=== PATIENT | male | born 1975 | race Caucasian/White ===

== ENCOUNTER 2017-08-20 16:12 | Inpatient (IN) | payer BC, OTHER ==
[~2017-08-20] VITALS: Ht 182.9 cm; Wt 117.9 kg
--- NOTE | 2017-08-20 20:05 | NUR ---
INTAKE Patient first assessment done in intake office. Patient stated that he is here for detox. Patient reports NKA, reported using "Alcohol/"Vodka PO" every day since "1995". Last used "vodka 480 ml on 08/20/2017 @1400". Patient noted disheveled, unkempt, and uncombed. Patient noted with moderate intoxication. CIWA=12. Patient presented with anxiety, agitation, nervousness, tremors, and sweating. VS: BP: 144/93, HR:112, T:98.3, RR:19, RA SpO2: 95%, Pain: "0/10". Explained rules and regulations of the unit. Patient verbalized understanding. Further assessment will be done on the unit.
--- NOTE | 2017-08-20 20:17 | NUR ---
ADMISSION NOTE: New patient is a 41 year old male admitted to [facility] on 08/20/2017 @2017 for Alcohol/"Vodka" withdrawal. Patient is ambulatory with steady gait. Height: 72 inches; Weigh by standing scale: 260 lbs. Patient is alert and oriented x4. Patient reports NKA, is on Regular Diet, Full Code, is on Fall and Seizures Precautions . Patient denies Seizures history. PMH: Anxiety, Depression, Asthma ("childhood hx"). UDS test provided. VS: BP: 144/93, HR:112, T:98.3, RR:19, RA SpO2: 95%, Pain level: "0/10". Patient denies SI/HI now. Respirations even and unlabored. Lung Sounds are clear throughout. Patient denies SOB, cough, and chest pain. Bowel sounds active in all four quadrants. Skin is intact, warm and dry to touch. Patient reports " first time on detox". Patient did not bring home medications. Patient reports "No PCP". Patient noted disheveled, unkempt, and uncombed. Patient noted with moderate intoxication. CIWA=12. Patient presented with anxiety, agitation, nervousness, tremors, and sweating. Substance Use History: 1. "Alcohol/Vodka since 1995 every day 750 ml. Last used "vodka 480 ml on 08/20/2017 @1400". Patient reports " not smoking 10 years". Doctor Franklyn Reid MD assessed patient. Orders placed. Encouraged patient to verbalize feelings. All needs met. Call light within reach. Bed locked and in lowest position. Padded side rails up x2. Will continue to monitor.
[2017-08-20 21:02] LABS: *AMPHETAMINE, URINE NEGATIVE (NEGATIVE); *BARBITURATE, URINE NEGATIVE (NEGATIVE); *CANNABINOID, URINE NEGATIVE (NEGATIVE); *COCCAINE, URINE NEGATIVE (NEGATIVE); *OPIATE, URINE NEGATIVE (NEGATIVE); *PHENCYCLIDINE SCREEN,URINE NEGATIVE (NEGATIVE)
[2017-08-20 21:48] VITALS: BP 144/93
[2017-08-20] MEDS ORDERED: ONDANSETRON ODT 4 MG TAB.RAPDIS SL PRN (22:00)
[2017-08-20] MEDS ORDERED: MAGNESIUM HYDROXIDE 30 ML LIQUID UDC PO PRN (22:00)
[2017-08-20] MEDS ORDERED: MIRALAX 17 GM POWD.PACK PO PRN (22:00)
[2017-08-20] MEDS ORDERED: ALBUTEROL SULFATE 2.5 MG/ 0.5 ML NEBU NEB PRN (22:00)
[2017-08-20] MEDS ORDERED: ONDANSETRON 4 MG/2 ML VIAL IM PRN (22:00)
[2017-08-20] MEDS ORDERED: LORAZEPAM 1 MG TABLET PO PRN ×2 (22:00)
[2017-08-20] MEDS ORDERED: DICYCLOMINE HCL 20 MG TABLET PO PRN (22:00)
[2017-08-20] MEDS ORDERED: LORAZEPAM 2 MG/1 ML VIAL IM PRN (22:00)
[2017-08-20] MEDS ORDERED: MAG HYDROX/AL HYDROX/SIMETH 30 ML LIQUID UDC PO PRN (22:00)
[2017-08-20] MEDS ORDERED: ACETAMINOPHEN 325 MG TABLET PO PRN (22:00)
[2017-08-20] MEDS ORDERED: IBUPROFEN 400 MG TABLET PO PRN (22:00)
[2017-08-20] MEDS ORDERED: LOPERAMIDE HCL 2 MG CAPSULE PO PRN ×2 (22:00)
[2017-08-20] MEDS ORDERED: THIAMINE HCL 200 MG/2 ML VIAL IM ONE (22:00)
[2017-08-20 22:08] LABS: BASOPHILS # (AUTO) 0.1 K/uL (0.0-8.0); EOSINOPHILS % (AUTO) 0.2 % (0.0-7.0); HEMATOCRIT 50.3 % (36.7-47.1); HEMOGLOBIN 17.1 g/dL (12.5-16.3); LYMPHOCYTES # (AUTO) 5.2 K/uL (20.0-40.0); LYMPHOCYTES % (AUTO) 43.9 % (20.5-51.5); MEAN CORPUSCULAR HEMOGLOBIN 31.6 uug (23.8-33.4); MEAN CORPUSCULAR HGB CONC 34 g/dL (32.5-36.3); MEAN CORPUSCULAR VOLUME 92.7 fL (73.0-96.2); MONOCYTES # (AUTO) 0.9 K/uL (2.0-10.0); MONOCYTES % (AUTO) 7.6 % (0.0-11.0); NEUTROPHILS # (AUTO) 5.6 K/uL (1.8-8.9); NEUTROPHILS % (AUTO) 47.3 % (38.5-71.5); PLATELET COUNT (AUTO) 257 K/uL (152-348); RED BLOOD CELL COUNT(AUTO) 5.42 MIL/uL (4.06-5.63); WHITE BLOOD COUNT (AUTO) 11.8 K/uL (3.6-10.2)
[2017-08-20 22:13] LABS: BILIRUBIN,TOTAL 0.9 mg/dL (0.2-1.0); CREATININE 1.1 mg/dL (0.6-1.3); POTASSIUM 4.1 mmol/L (3.5-5.1); TOTAL PROTEIN, SERUM 9.3 g/dL (6.4-8.2)
[2017-08-20] MEDS ORDERED: LORAZEPAM 1 MG TABLET PO SCH (22:30)
[2017-08-21] VITALS: BP 123/76
[2017-08-21 04:00] VITALS: BP 145/92
--- NOTE | 2017-08-21 04:25 | NUR ---
PRN ATIVAN 2 MG PO ADMINISTRATION PRN ATIVAN 2 MG PO ADMINISTRATED FOR CIWA=15 ORDERED. PATIENT TOLERATED WELL. ALL NEEDS MET. SAFETY MEASURES IN PLACE;CALL LIGHT WITHIN REACH, BED IS LOCKED IN LOWEST POSITION, PADDED BED RAILS UP X2. WILL CONTINUE TO MONITOR CLOSELY.
--- NOTE | 2017-08-21 05:25 | NUR ---
RE-ASSESSMENT Patient is sleeping. Respirations even and unlabored. RR=14. PRN Ativan 2 mg PO administrated for CIWA= 15 @0425 was effective. All needs met. Safety measures on place. Call light within reach, bed in lowest position locked, padded rails up bilaterally. Will continue to monitor closely.
--- NOTE | 2017-08-21 07:09 | NUR ---
END OF SHIFT NOTE 41 year old male presented for ETOH(Vodka) withdrawal, continues 5 Day Ativan Taper, which tolerated well. Patient is alert and oriented x4. Patient reports NKA, is on Regular Diet, Full Code, is on Fall and Seizures Precautions. Patient denies Seizures history. Patient noted disheveled with uncombed hair and with poor eye contact. Patient educated in safety and hygiene care. Encouraged to independently perform hygiene care. CIWA=12 @2000, CIWA=10 @0000, and last CIWA=9 @0526. Patient presented with anxiety, agitation, nervousness, tremors, sweating, fatigue, and restlessness. Patient denies SI/HI at this time. Patient encouraged to increase oral fluid intake as tolerated. Ativan 2 mg PO given for CIWA=15 @0425 as ordered, and was effective. Patient 8 hours, intake 1,105 ml, voided x1. Safe and calm environment with minimized noises was provided. Patient slept 6 hours, intake 1,796 ml, voided x2. All needs met. Safety measures in the place: Call light within reach, bed in the lowest position locked, padded rails up x2. Patient endorsed to day shift nurse.
--- NOTE | 2017-08-21 07:15 | NUR ---
Start of Shift Lip Reading Teacher received report on 41 year old male admitted to [facility] on 08/20/17 for medically supervised withdrawal from ETOH. Endorses NKA, full code and regular diet. PMH of Childhood Asthma, anxiety and depression. Pt has been started on an Ativan taper. Pt received an Ativan for CIWA of 15 at 0425. Last recorded of CIWA, per NOC report. Lip Reading Teacher encounters pt in his room resting on his bed. A/O x4, calm, cooperative and able to make needs known. Flat affect and depressed mood. Clear of thought and speech. Endorses being in his first detoxification program. Lip Reading Teacher educated pt on detoxification process and medication available to treat symptoms associated with. [place] [address] was effective in eliminating tremors. Bed in low position, with wheels locked and side rails up x2. Will continue to monitor, support and encourage according to plan of care.
[2017-08-21 08:30] VITALS: BP 140/85
[2017-08-21] MEDS ORDERED: TUBERCULIN,PURIF.PROT.DERIV. 5 TU/0.1 ML TEST ID ONE (09:00)
[2017-08-21] MEDS: THIAMINE HCL 100 MG TABLET PO SCH (09:22)
[2017-08-21] MEDS: FOLIC ACID 1 MG TABLET PO SCH (09:22)
[2017-08-21] MEDS: LORAZEPAM 1 MG TABLET PO SCH ×3 (09:22→20:27)
[2017-08-21] MEDS: MULTIVITAMINS,THERAPEUTIC TABLET PO SCH (09:22)
[2017-08-21 12:23] VITALS: BP 137/89
[2017-08-21 16:47] VITALS: BP 142/94
--- NOTE | 2017-08-21 18:45 | NUR ---
START OF SHIFT NOTE Endorsed patient is a 41 year old male admitted for Alcohol(Vodka) withdrawal, continues 5 Day Ativan Taper. He is tolerated well. Patient is alert and oriented x4. Patient reports NKA, is on Regular Diet, Full Code, is on Fall and Seizures Precautions. Patient denies Seizures history. Patient appears unshaved, unkempt, with uncombed hair. Patient educated in safety and hygiene care. Encouraged to independently perform hygiene care. The most recent CIWA=9 @1649 per day shift nurse report. Patient presented with anxiety, agitation, nervousness, tremors, sweating, body aches, fatigue, and restlessness. Patient encouraged to express his feelings. Encouraged to fluids intake as tolerated. Encouraged to attend group activities. All needs met. Safety measures in place: Call light within reach, bed is locked and in lowest position, padded bed rails up x2. Patient endorsed by day shift nurse. Will continue to monitor closely.
--- NOTE | 2017-08-21 18:45 | NUR ---
End of Shift Sales Team Leader provided report on 41 year old male admitted to [facility] on 08/20/17 for medically supervised withdrawal from ETOH. Endorses NKA, full code and regular diet. PMH of Childhood Asthma, anxiety and depression. Pt has been started on an Ativan taper, pt tolerating well with last CIWA 9, recorded at 1600. Pt is A/O x4, calm, cooperative and able to make needs known. Flat affect and depressed mood. Clear of thought and speech. Pt has been isolative to his room and withdrawn and guarded. Bed in low position, with wheels locked and side rails up x2. Will continue to monitor, support and encourage according to plan of care.
[2017-08-21 20:00] VITALS: BP 131/92
[2017-08-21] MEDS: diphenhydrAMINE 50 MG CAPSULE PO PRN (20:27)
--- NOTE | 2017-08-21 20:27 | NUR ---
PRN BENADRYL 50 MG 1 CAP PO ADMINISTRATION Patient c/o insomnia. PRN Benadryl 50 mg 1 cap PO administrated with full glass of water as ordered. Patient tolerated well. All needs met. Safety measures on place. Call light within reach, bed in lowest position locked, padded rails up bilaterally. Will continue to monitor closely
--- NOTE | 2017-08-21 21:27 | NUR ---
RE-ASSESSMENT Patient is sleeping. RR 14. Respirations even and unlabored. PRN Benadryl 50 mg 1 cap PO administrated for insomnia @2026 as ordered was effective. All needs met. Safety measures on place. Call light within reach, bed in lowest position locked, padded rails up x2. Will continue to monitor closely.
[2017-08-22] VITALS (7 sets, daily range): BP systolic 114–151; BP diastolic 76–102
--- NOTE | 2017-08-22 06:54 | NUR ---
END OF SHIFT NOTE Endorsed 41 year old male continues 5 Day Ativan Taper for ETOH(Vodka) withdrawal. Patient remains compliant with treatment, medications and diet regime. Withdrawal symptoms was closely monitored. Patient is alert and oriented x4. Patient reports NKA, is on Regular Diet, Full Code, is on Fall and Seizures Precautions. Patient denies Seizures history. Patient appears sad, worry, unshaven , unkempt, and uncombed. Patient educated in safety and hygiene care. Encouraged to independently perform hygiene care. CIWA=13 @2000, CIWA=9 @0000, CIWA=10 @0400. During operation shift supervisor patient c/o anxiety, agitation, nervousness, generalized body aches, sweating, tremors, fatigue, and restlessness. Encouraged to increase oral fluid intake as tolerated. Encouraged to attend group activities. PRN Benadryl 50 mg 1 tab PO administrated for insomnia @2026 was effective. Safe and calm environment with minimized noises was provided. Patient slept 6 hours, intake 1,000ml, voided x2., stool x1. All needs met. Safety measures in the place by hospital policy: Call light within reach, bed in the lowest position and locked, padded rails up x2. Patient endorsed to day shift nurse.
--- NOTE | 2017-08-22 07:45 | NUR ---
START OF SHIFT Received report from nightman nurse. Pt is lying in bed resting and easily arousable. He is a 41 yo [address] to [facility] [facility] on 08/20 for ETOH dependence. He continues on a 5 day Ativan taper for management of withdrawal symptoms. Pt required medication for sleep. His room is odorous upon entering. He has a flat affect, depressed mood, with facial flushing and tremors. B/P elevated while lying in bed. Safety measures in place.
[2017-08-22 08:07] LABS: HEPATITIS B SURFACE AG Negative (Negative)
[2017-08-22] MEDS: FOLIC ACID 1 MG TABLET PO SCH (08:23)
[2017-08-22] MEDS: THIAMINE HCL 100 MG TABLET PO SCH (08:23)
[2017-08-22] MEDS: MULTIVITAMINS,THERAPEUTIC TABLET PO SCH (08:23)
[2017-08-22] MEDS: CLONIDINE HCL 0.1 MG TABLET PO PRN (08:24)
--- NOTE | 2017-08-22 08:25 | NUR ---
PRN Clonidine Pt's B/P 151/101 and HR 103. CIWA score 9. He has tremors and moist skin. PRN Clonidine administered.
[2017-08-22] MEDS ORDERED: LORAZEPAM 1 MG TABLET PO SCH ×2 (09:00→21:00)
--- NOTE | 2017-08-22 09:30 | NUR ---
PRN Clonidine reassessment PRN Clonidine somewhat effective. B/P 133/89 and HR 108. Pt reports feeling more relaxed. Dr. Reid aware. No new orders.
[2017-08-22] MEDS ORDERED: TUBERCULIN,PURIF.PROT.DERIV. 5 TU/0.1 ML TEST ID ONE (13:00)
[2017-08-22] MEDS: LORAZEPAM 1 MG TABLET PO SCH ×2 (13:24→17:14)
--- NOTE | 2017-08-22 18:58 | NUR ---
START OF SHIFT Report provided to warehouse shift supervisor nurse. Pt is attending a group meeting. He is a 41 yo male admitted to [facility] on 08/20 for ETOH dependence. He continues on a 5 day Ativan taper for management of withdrawal symptoms. Pt had elevated B/P and HR with no h/o HTN. He was anxious and distracted by thoughts of his job. He is preoccupied with his discharge date. Encouraged pt to focus on his treatment. He has a blunted affect and expressed feelings of guilt. Provided support. Ativan increased to 2mg tonight at bedtime by Dr. Reid. PRN Clonidine administered. Pt compliant with group meetings. Last CIWA was 7. Safety measures in place. Addendum: 08/22/17 at 1902 by ADEEL VARMA RN Correction: END OF SHIFT NOTE
--- NOTE | 2017-08-22 18:58 | NUR ---
START OF SHIFT NOTE 41 year old male presented for Alcohol(Vodka) withdrawal, continues 5 Day Ativan Taper which tolerated well. He is reports NKA, is on Regular Diet, Full Code, is on Fall and Seizures Precautions. Patient denies Seizures history. Patient appears with flat effects, worry, disheveled, unshaved, unkempt, with uncombed hair. Patient educated in safety and hygiene care. Encouraged to independently perform hygiene care. The most recent CIWA=7 @78831 per day shift nurse report. Patient presented with anxiety, agitation, nervousness, tremors, sweating, body aches, fatigue, and restlessness. Patient encouraged to express his feelings. PRN Clonidine was administrated for High Blood Pressure and was effective per day shift nurse report. Encouraged to fluids intake as tolerated. Encouraged to attend group activities. All needs met. Safety measures in place: Call light within reach, bed is locked and in lowest position, padded bed rails up x2. Patient endorsed by day shift nurse. Will continue to monitor closely.
[2017-08-22] MEDS: GABAPENTIN 300 MG CAPSULE PO SCH (21:00)
[2017-08-22] MEDS: CLONIDINE HCL 0.1 MG TABLET PO SCH (21:00)
[2017-08-23] VITALS: BP 106/66
[2017-08-23 04:00] VITALS: BP 113/74
--- NOTE | 2017-08-23 06:42 | NUR ---
END OF SHIFT NOTE: 41 year male continues 5 Day Ativan Taper for Alcohol/Vodka withdrawal which tolerated well. Patient remains compliant with treatment, medications, and diet regime. Withdrawal symptoms closely monitored. Patient is alert and oriented x4. Patient noted anxious, worry about his "job", disheveled, unshaven, and uncombed. Emotional support provided. Educated in safety and hygiene care, encouraged to independently perform hygiene care. CIWA=11 @2000; CIWA=8 @0000. The most recent CIWA=9 @0400. Patient presented with anxiety, agitation, nervousness, tremors, restlessness, and sweating. CIWA taken while patient was alert. No PRN Medications administrated last shift manager. Encouraged to fluids intake as tolerated. Encouraged to attend group activities. Safe and calm environment with minimized noises was provided. Patient slept 7 hours, intake 2,000 ml, voided x4. All needs met. Safety measures in the place by hospital policy: Call light within reach, bed in the lowest position locked, padded rails up x2. Patient endorsed to day shift nurse.
--- NOTE | 2017-08-23 07:45 | NUR ---
START OF SHIFT Endorse rcvd from ongoing nurse, client is in bed, in a position, he is a/o to name, place and situation, he presents with anxious mood, flat affect, tremors, skin moist, dark circles around eyes, dry lips. Client reports cold/chills, nausea, decreased appetite, restless legs, feeling of panic, and fatigue. Encourage client to increase PO fluid intake to facilitate detox and dehydration. Encourage client to participate in ADL's. Encourage client to attend group therapy to learn skills to maintain sober. Last CIWA 9 @ 0400. Client had an uneventful night, he slept 7 hrs. Seizure precautions rendered. Call light within reach.
[2017-08-23 08:05] VITALS: BP 128/86
[2017-08-23] MEDS: MULTIVITAMINS,THERAPEUTIC TABLET PO SCH (08:32)
[2017-08-23] MEDS: THIAMINE HCL 100 MG TABLET PO SCH (08:32)
[2017-08-23] MEDS: FOLIC ACID 1 MG TABLET PO SCH (08:33)
[2017-08-23] MEDS: GABAPENTIN 300 MG CAPSULE PO SCH ×3 (08:33→20:48)
[2017-08-23] MEDS: CLONIDINE HCL 0.1 MG TABLET PO SCH ×2 (08:33→20:47)
[2017-08-23] MEDS ORDERED: LORAZEPAM 1 MG TABLET PO SCH ×3 (09:00→21:00)
--- NOTE | 2017-08-23 10:00 | NUR ---
Nursing notes Client refuses padding on side rails x 2 as seizure precautions, risk/benefits discuss with client, but he still refused.
[2017-08-23 12:00] VITALS: BP 114/66
[2017-08-23 16:40] VITALS: BP 133/82
--- NOTE | 2017-08-23 16:50 | NUR ---
Client with increased P 119, he denies chest pain. He stated, "We just had a very personal group therapy, I feel anxious, but I don't want to take ant extra medications." Will continue to monitor. call light within reach.
--- NOTE | 2017-08-23 19:14 | NUR ---
END OF SHIFT Endorse client to incoming nurse, client is in bed, a/o x4, he continue to present with anxious mood, flat affect, tremors, skin moist, cold/chills, nausea, decreased appetite, restless legs, feeling of panic, and fatigue. Adequate Po fluid intake 2200mL, void x 3, stool x 1. Client consumes ~50% of meals. Client is compliant with 1/3 of group therapy. Client continue to decline side rails padding as seizure precautions. Last CIWA 13 @ 1600. Side rails x 2 up. Call light within reach.
--- NOTE | 2017-08-23 20:05 | NUR ---
Start of Shift: A/o x4 C/o anxiety CIWA 4 day 3 of 5 Day Atnaveed ingram. Continue to observe for Falls, sz activity and safety checks. Encourage po fluids,attend groups and verbalize feelings. 1-1 anxiety. Siderails up Call light within reach.
[2017-08-23 21:00] VITALS: BP 107/68
[2017-08-23] MEDS: diphenhydrAMINE 50 MG CAPSULE PO PRN (22:04)
--- NOTE | 2017-08-23 23:00 | NUR ---
C/O insomonia Given Benadryl 50 mg po
[2017-08-24] VITALS (7 sets, daily range): BP systolic 107–146; BP diastolic 68–89
--- NOTE | 2017-08-24 00:10 | NUR ---
Deferred CIWA and v/s
--- NOTE | 2017-08-24 04:05 | NUR ---
Deffered CIWA and v/s
--- NOTE | 2017-08-24 06:15 | NUR ---
End of shift Report: Lying bed eyes closed resp even and unlab appear resting comforably slept 7 hours CIWA 5 on ativan tamper siderails up Call light within reach.
--- NOTE | 2017-08-24 07:46 | NUR ---
START OF SHIFT Client is in room, he is a/o to name, place and situation, he has difficulty concentrating, he presents with anxious mood, flat affect, restless, he continues to open and close his fist, clammy skin, flushed face. Client is unshaven with strong body odor, encourage client to take a shower after he take his morning medications, he said, "I'll try, I just don't feel good at all." Client reports cold/chills, tremors, sweating, stomach cramps, nausea, loose stool x 2, restless legs, and fatigue. Encourage client to increase PO fluid for rehydration and to facilitate detox. Encourage client to attend group therapy to learn skills to maintain sober. Last CIWA 5 @ 1999. PRN Benadryl 50mg PO administered for inability to sleep, he slept 7 hrs. Side rails up x 2, client refused the padding on side rails, stating, "No, I have never had a seizure before, I don't think I'll have one today either." Educate client on the risk for alcohol withdrawal-induced seizure and the benefits of padding the side rails as a seizure precautions, but client still refused the padding of side rails. Call light within reach.
[2017-08-24] MEDS: CLONIDINE HCL 0.1 MG TABLET PO SCH ×2 (09:21→21:00)
[2017-08-24] MEDS: LORAZEPAM 1 MG TABLET PO SCH ×2 (09:21→21:00)
[2017-08-24] MEDS: FOLIC ACID 1 MG TABLET PO SCH (09:21)
[2017-08-24] MEDS: GABAPENTIN 300 MG CAPSULE PO SCH ×3 (09:21→20:55)
[2017-08-24] MEDS: THIAMINE HCL 100 MG TABLET PO SCH (09:21)
[2017-08-24] MEDS: MULTIVITAMINS,THERAPEUTIC TABLET PO SCH (09:21)
[2017-08-24] MEDS: CLONIDINE HCL 0.1 MG TABLET PO PRN (12:46)
--- NOTE | 2017-08-24 12:46 | NUR ---
PRN Clonidine 0.1mg PO administered for increased BP 146/88. Will continue to monitor. Call light within reach.
--- NOTE | 2017-08-24 13:46 | NUR ---
Reassess PRN Clonidine 0.1mg BP 125/79. Call light within reach.
[2017-08-24] MEDS ORDERED: DIPH50CA37 PO (17:33)
[2017-08-24] MEDS ORDERED: GABA-534 PO (17:33)
[2017-08-24] MEDS ORDERED: HYDR-3026 PO (17:33)
[2017-08-24] MEDS ORDERED: CLON0.1T14 PO (17:33)
--- NOTE | 2017-08-24 19:25 | NUR ---
END OF SHIFT Endorse client to incoming nurse, client is a/o x4, he continues to present with anxious mood, flat affect, restless, flushed face, cold/chills, tremors, sweating, stomach cramps, nausea, restless legs, and fatigue. Adequate Po fluid intake 2215mL, void x 5. Client consumes ~75% of meals. Client is compliant with 1/3 of group therapy. Last CIWA 514 @ 1600. PRN Clonidine 0.1mg Po administered for BP 146/88, noted effective. Side rails x 2 up, not padded, client refused them. Call light within reach.
--- NOTE | 2017-08-24 20:45 | NUR ---
Start of Shift: A/O x4 skin w/d c/o anxiety,tremors and agitation CIWA 4. On Ativan tamper.Encourage to attend groups and fluids. Continue to observe for safety, Falls & sz activity. Siderails up Call light within reach. Denies of any other distress
[2017-08-24] MEDS: diphenhydrAMINE 50 MG CAPSULE PO PRN (20:54)
--- NOTE | 2017-08-24 21:45 | NUR ---
PRN: C/o insomonia given 50mg Benadryl effective.
[2017-08-25] VITALS (7 sets, daily range): BP systolic 132–166; BP diastolic 82–95
--- NOTE | 2017-08-25 | NUR ---
Deferred CIWA and V/S
--- NOTE | 2017-08-25 04:15 | NUR ---
Deferred CIWA and V/S
--- NOTE | 2017-08-25 06:17 | NUR ---
End of Shift: Lying in bed eyes closed resp even and unlab appears resting comfortably. Slept 5.3/4 hours. Siderails up,Call light within reach. Continue to observe for safety and give am shift report. Last CIWA 4
--- NOTE | 2017-08-25 07:34 | NUR ---
START OF SHIFT Client is in room, scattered clothes on the floor, bedside table with open bottle water and soft drinks, several open bags of chips on the floor. Client is a/o x 4, he presents with anxious mood, flat affect, flushed face, tremors felt, not observed, and clammy skin. Client reports a headache, stomach cramps, restless legs, and fatigue. Encourage client to increase PO fluid intake as tolerated to facilitate detox. Encourage client to attend group therapy to learn skills to maintain sober. Client is on last of 5 day Ativan taper, last CIWA 4 @ 1999. Client slept 6 hrs. Side rails x 2 up, not padded, client refuses them, stating, "Yeah, yeah, I know they will protect my face in the event of a seizure, but I don't want them, OK." Call light within reach.
[2017-08-25] MEDS: FOLIC ACID 1 MG TABLET PO SCH (08:54)
[2017-08-25] MEDS: MULTIVITAMINS,THERAPEUTIC TABLET PO SCH (08:54)
[2017-08-25] MEDS: GABAPENTIN 300 MG CAPSULE PO SCH ×3 (08:54→22:01)
[2017-08-25] MEDS: THIAMINE HCL 100 MG TABLET PO SCH (08:54)
[2017-08-25] MEDS: CLONIDINE HCL 0.1 MG TABLET PO SCH ×2 (08:55→22:01)
[2017-08-25] MEDS ORDERED: LORAZEPAM 1 MG TABLET PO SCH (09:00)
--- NOTE | 2017-08-25 11:45 | NUR ---
Endorsed client to RN Client continues to present with anxious mood, flat affect. Last CIWA 11 @ 0800. Client consumes ~50% of meals. Client is not compliant with group therapy. Seizure precautions rendered. call light within reach.
--- NOTE | 2017-08-25 11:46 | NUR ---
RECEIVED CARE Patient received from primary nurse all pertinent information discussed.Will cont to monitor.
--- NOTE | 2017-08-25 19:00 | NUR ---
Start of Shift Patient Received. Patient is in the activities room participating in a group meeting. Per endorsement, patient is a 41 year old male admitted for ETOH Withdrawal and completed a 5 day Ativan taper. Patient is set of for discharge tomorrow 08/26/17. No PRN Medications administered. Last noted CIWA 6. All needs attended to promptly. Will continue plan of care as ordered.
--- NOTE | 2017-08-25 19:01 | NUR ---
END OF SHIFT NOTE Patient is alert awake oriented x4. Patient admitted for ETOH withdrawal. Patient presented with anxiety, agitation. Patient completed his Ativan taper tolerated well. Patient set for discharge in the morning. During shift pt did not receive any PRN'S. Encourage pt to develop coping skills and utilization of non pharmacological intervention. Patient was encouraged to participates in groups therapy session. Encourage diversional activities to alleviate anxiety. Patient denies any SI/HI. Safety measures in place. Patient endorsed to night nurse in stable condition.
[2017-08-25] MEDS: diphenhydrAMINE 50 MG CAPSULE PO PRN (22:01)
--- NOTE | 2017-08-25 22:02 | NUR ---
PRN Medication Administration Patient is noted verbalizing inability of falling asleep. PRN Benadryl administered as per order. Will continue to monitor.
--- NOTE | 2017-08-25 23:00 | NUR ---
PRN Medication Reassessment patient is noted awake and verbalizing inability of falling asleep. Patient states "Im really nervous about leaving tomorrow because my is picking me up. Im going to try and fall asleep but Ill let you know if I cant sleep." PRN Benadryl noted not effective. Will continue to monitor.
[2017-08-25] MEDS: HYDROXYZINE PAMOATE 25 MG CAPSULE PO PRN (23:59)
[2017-08-25] MEDS: CLONIDINE HCL 0.1 MG TABLET PO PRN (23:59)
--- NOTE | 2017-08-26 | NUR ---
PRN Medication Administration patient is noted with elevated blood pressure of 166/95 and pulse of 94 and continues with inability of falling asleep. MD made aware with new order of Vistaril 50mg for increased anxiety. PRN Clonidine and Vistaril administered. Will continue to monitor.
[2017-08-26 00:50] VITALS: BP 131/83
--- NOTE | 2017-08-26 00:50 | NUR ---
PRN Medication Reassessment Blood pressure reassessed and noted as 131/83 and pulse of 77. Patient is able to verbalize "Im finally calm enough to try and sleep." PRN Vistaril and Clonidine noted to be effective. Will continue to monitor.
[2017-08-26 04:15] VITALS: BP 129/83
--- NOTE | 2017-08-26 07:22 | NUR ---
End of Shift Patient is in his room sleeping but easily aroused to verbal stimuli. Breathing even and non labored. Patient is a 41 year old male admitted for ETOH Withdrawal and completed a 5 day Ativan taper. Patient is set of for discharge today 08/26/17. Patient noted to verbalize inability of falling asleep and was given PRN Benadryl with medication not effective. Patient was then medicated for elevated blood pressure with Clonidine and was also noted to verbalize increased anxiety and was medicated with PRN Vistaril. Both PRN Clonidine and Vistaril noted to be effective. Last noted CIWA 8. patient slept a total of 5 hours. All needs attended to promptly. Will endorse to continue plan of care as ordered.
--- NOTE | 2017-08-26 07:50 | NUR ---
START OF SHIFT Client is sitting at the edge of bed, he is a/o x 4, client presents with anxious mood, flat affect, skin dry and warm to touch. Client reports feeling anxious, but ready to go home and see his . He reports stomach cramps, decrease appetite and restless legs. Client completed 5 day Ativan taper. Per ongoing nurse, last CIWA 8 @ 1999. PRN Clonidine 0.1mg PO for BP 166/95, decreased BP 131/83, Benadryl 50mg PO for inability to sleep, he slept 5 hrs. Side rails x 2 up, client refuses padding. Call light within reach.
[2017-08-26 08:07] VITALS: BP 127/82
[2017-08-26] MEDS: GABAPENTIN 300 MG CAPSULE PO SCH (08:27)
[2017-08-26] MEDS: THIAMINE HCL 100 MG TABLET PO SCH (08:27)
[2017-08-26] MEDS: MULTIVITAMINS,THERAPEUTIC TABLET PO SCH (08:27)
[2017-08-26] MEDS: CLONIDINE HCL 0.1 MG TABLET PO SCH (08:27)
[2017-08-26] MEDS: FOLIC ACID 1 MG TABLET PO SCH (08:27)
[2017-08-26 11:30] VITALS: BP 143/90
[2017-08-26] MEDS: CLONIDINE HCL 0.1 MG TABLET PO PRN (11:30)
[2017-08-26] MEDS: HYDROXYZINE PAMOATE 25 MG CAPSULE PO PRN (11:37)
--- NOTE | 2017-08-26 11:52 | NUR ---
Discharge note Client was admitted for withdrawal from alcohol. Client has a recent CIWA 4. LBM was 08/25/17. Client denies any SI/HI. Client verbalized her understanding of the discharge instructions, he said, "I still feel a little anxious, but it's because I miss my family too much." Client discharge instructions, prescriptions, and all belongings returned to client. All needs addressed at this time. Client ambulated off of unit, he left facility via private car with [place] () to [facility]..
== END 2017-08-26 11:52 | disposition home or self-care (01) | DRG 895 ==
LOC: SRC 19:33
PROVIDERS: ADMIT Internal Medicine; ATTEND Internal Medicine
PROC: HZ2ZZZZ Detoxification Services for Substance Abuse Treatment (ICD-10-PCS; principal; 2017-08-20)
PROC: HZ31ZZZ Individual Counseling for Substance Abuse Treatment, Behavioral (ICD-10-PCS; 2017-08-21)
PROC: HZ41ZZZ Group Counseling for Substance Abuse Treatment, Behavioral (ICD-10-PCS; 2017-08-22)
DX: F10.232 Alcohol dependence with withdrawal with perceptual disturbance (principal); I15.9 Secondary hypertension, unspecified; K70.10 Alcoholic hepatitis without ascites; D72.823 Leukemoid reaction; Y90.1 Blood alcohol level of 20-39 mg/100 ml; J45.20 Mild intermittent asthma, uncomplicated; F17.211 Nicotine dependence, cigarettes, in remission; Z81.1 Family history of alcohol abuse and dependence; Z91.89 Other specified personal risk factors, not elsewhere classified
CPT/HCPCS: 36415; 70030-TC; 80307; 83735; 85025; 86592; 86705; 86803; 87340; 87806; A4663; G0480; J3411; Q0163